=== PATIENT | female | born 1980 | race Caucasian/White ===

== ENCOUNTER → 2022-03-17 | Outpatient (CLI) | payer OTHER, SELFPAY ==
--- NOTE | 2022-03-17 10:29 | BI_ITS ---
MAMMOGRAPHY - BILATERAL SCREENING REASON FOR EXAM: Female, 41 years old. Routine annual screening examination. PERTINENT HISTORY: Prior history of bilateral breast reduction surgery. TECHNIQUE: Digital bilateral breast deni (3D mammographic acquisition) in the CC and MLO projections. 2-D mediolateral oblique (MLO) and craniocaudad (CC) views of both breasts were obtained. CAD: Full Field Digital Mammography with Computer Added Detection was performed. COMPARISON: None. Baseline examination. FINDINGS: Breast Composition: There are scattered areas of fibroglandular density. There are grouped rounded calcifications in the left upper outer breast, anterior depth approximately 2.5 cm posterior to the nipple. Further evaluation with magnification views is recommended. There is a focal asymmetry in the right lower inner breast, posterior depth, approximately 7.5 cm posterior to nipple. In addition, there is also a focal asymmetry in the right lower inner breast, middle depth, approximately 5 cm posterior to the nipple. Further evaluation with spot compression views and ultrasound is recommended. No other significant abnormalities are identified. BI/SCRN MAMM (CAD)W/DENI BILAT IMPRESSION: Further imaging evaluation recommended, as described above. (E) ASSESSMENT CATEGORY: BIRADS Category 0: Incomplete. Need additional imaging evaluation. A letter regarding these results will be sent to the patient by the facility within 30 days. Approximately 10% of breast cancers are not detected by mammography. A normal mammogram should not delay biopsy of a clinically suspicious abnormality. [id number] Electronically Signed: Jurgen Galvin, at 8:16 EDT ,
== END | disposition home or self-care (01) ==
LOC: OPBI 10:27
PROVIDERS: PCP Nurse Practitioner Primary Care; Referring Provider Student in an Organized Health Care Education/Training Program; Visit Provider Student in an Organized Health Care Education/Training Program
DX: Z12.31 Encounter for screening mammogram for malignant neoplasm of breast (principal)
CPT/HCPCS: 77063; 77067

== ENCOUNTER → 2022-03-23 | Outpatient (CLI) | payer OTHER, SELFPAY ==
--- NOTE | 2022-03-23 08:54 | BI_ITS ---
MAMMOGRAPHY - BILATERAL DIAGNOSTIC REASON FOR EXAM: Female, 41 years old. Abnormal screening mammogram. PERTINENT HISTORY: Prior bilateral breast reduction surgery. TECHNIQUE: Compression spot views of both breasts were obtained. CAD: Full Field Digital Mammography with Computer Added Detection was performed. COMPARISON: Comparison is made with prior study dated 03/17/2022. FINDINGS: Breast Composition: There are scattered areas of fibroglandular density. Stable persistent nodular density in the inferior slightly medial aspect of the right breast. Correlation with ultrasound is recommended. No other significant abnormalities are identified. BI/DIAG MAMM W/CAD, BILAT IMPRESSION: Stable persistent nodular density in the inferior slightly medial aspect of the right breast. Correlation with ultrasound is recommended. ASSESSMENT CATEGORY: BIRADS Category 0: Incomplete. Need additional imaging evaluation. A letter regarding these results will be sent to the patient by the facility within 30 days. Approximately 10% of breast cancers are not detected by mammography. A normal mammogram should not delay biopsy of a clinically suspicious abnormality. Electronically Signed: Vitor Fan MD at 9:44 EDT ,
--- NOTE | 2022-03-23 09:26 | US_ITS ---
STUDY: ULTRASOUND BREAST - RIGHT REASON FOR EXAM: Female, 41 years old. Abnormal screening mammogram. TECHNIQUE: Axial and longitudinal images of the RIGHT breast were performed with a high resolution ultrasound transducer. # OF IMAGES: 45 COMPARISON: Comparison is made with prior mammogram done earlier in the day as well as prior mammogram dated 03/17/2022. FINDINGS: RIGHT Breast: At the 3 o''clock position of the breast in the retroareolar region, there are 2 adjacent cysts. The larger cyst measures 5 mm x 5 mm x 5 mm. US/Breast Limited Unilateral IMPRESSION: There are 2 subcentimeter adjacent cysts in the retroareolar region of the right breast. ASSESSMENT CATEGORY: BIRADS Category 2: Benign. A letter regarding these results will be sent to the patient by the facility within 30 days. Electronically Signed: Vitor Fan MD at 10:32 EDT ,
== END | disposition home or self-care (01) ==
LOC: OPBI 08:51
PROVIDERS: PCP Nurse Practitioner Primary Care; Visit Provider Student in an Organized Health Care Education/Training Program
DX: R92.1 Mammographic calcification found on diagnostic imaging of breast (principal); R92.8 Other abnormal and inconclusive findings on diagnostic imaging of breast
CPT/HCPCS: 76642; 77066

== ENCOUNTER → 2023-04-23 | Outpatient (CLI) | payer OTHER, SELFPAY ==
--- NOTE | 2023-04-23 12:30 | BI_ITS ---
MAMMOGRAPHY - BILATERAL SCREENING 3-D TOMOSYNTHESIS REASON FOR EXAM: Female, 42 years old. Routine screening PERTINENT HISTORY: No significant family history. Previous reduction surgery TECHNIQUE: 2-D mammograms and 3-D Tomosynthesis of the breast (s) were performed. CAD was performed. COMPARISON: 03/17/2022 FINDINGS: The breast composition is almost entirely fat. Scattered benign punctate calcifications are seen. No dense spiculated masses or suspicious microcalcifications are identified. No architectural distortion is identified. There is no skin thickening or retraction. Stable architectural distortion from previous reduction surgery. There has been no significant change since the prior study. BI/SCRN MAMM (CAD)W/DENI BILAT IMPRESSION: No mammographic signs of malignancy. Routine yearly mammograms recommended. ASSESSMENT CATEGORY: BIRADS Category 1: Negative. A letter regarding these results will be sent to the patient by the facility within 30 days. FOLLOW UP RECOMMENDATION: Yearly follow up mammogram recommended. (A) Approximately 10% of breast cancers are not detected by mammography. A normal mammogram should not delay biopsy of a clinically suspicious abnormality. Electronically Signed: Grupo Mayer MD at 13:33 EDT ,
== END | disposition home or self-care (01) ==
PROVIDERS: PCP Nurse Practitioner Primary Care; Referring Provider Student in an Organized Health Care Education/Training Program; Visit Provider Student in an Organized Health Care Education/Training Program
DX: Z12.31 Encounter for screening mammogram for malignant neoplasm of breast (principal)
CPT/HCPCS: 77063; 77067

== ENCOUNTER → 2024-04-24 | Outpatient (CLI) | payer OTHER, SELFPAY ==
--- NOTE | 2024-04-24 13:39 | BI_ITS ---
MAMMOGRAPHY - BILATERAL SCREENING REASON FOR EXAM: Female, 43 years old. Routine annual screening examination. PERTINENT HISTORY: Non-contributory. History of prior bilateral breast reduction surgery. TECHNIQUE: Digital bilateral breast deni (3D mammographic acquisition) in the CC and MLO projections. 2-D mediolateral oblique (MLO) and craniocaudad (CC) views of both breasts were obtained. CAD: Full Field Digital Mammography with Computer Added Detection was performed. COMPARISON: Comparison is made with prior study dated April 23, 2023 and March 23, 2022. FINDINGS: Breast Composition: There are scattered areas of fibroglandular density. There are no dominant masses or suspicious calcifications. No other significant abnormalities are identified. There has been no significant change since the prior study. BI/SCRN MAMM (CAD)W/DENI BILAT IMPRESSION: Stable bilateral screening mammogram. Yearly follow-up mammogram recommended. (A) ASSESSMENT CATEGORY: BIRADS Category 1: Negative. A letter regarding these results will be sent to the patient by the facility within 30 days. Approximately 10% of breast cancers are not detected by mammography. A normal mammogram should not delay biopsy of a clinically suspicious abnormality. [id number] Electronically Signed: Vitor Fan MD at 14:56 EDT ,
== END | disposition home or self-care (01) ==
LOC: OPBI 13:37
PROVIDERS: PCP Nurse Practitioner Primary Care
DX: Z12.31 Encounter for screening mammogram for malignant neoplasm of breast (principal)
CPT/HCPCS: 77063; 77067

== ENCOUNTER → 2025-02-06 | Outpatient (CLI) | payer OTHER, SELFPAY ==
--- NOTE | 2025-02-06 13:53 | BI_ITS ---
EXAM: DIAG MAMM W/CAD, BILAT; BREAST LIMITED UNILATERAL; BILAT BRST DENI STAND ALONE 02/06/2025 CLINICAL HISTORY: 44-year-old female presents with palpable concern in the right breast. Personal history of bilateral breast reduction. TECHNIQUE: Bilateral Diagnostic digital breast tomosynthesis with 2D and 3D images. Computer aided detection. Also, targeted right breast ultrasound was performed. COMPARISON: Prior exam(s) dated 04/24/2024, 04/23/2023, 03/23/2022, 03/17/2022. FINDINGS: MAMMOGRAM: TISSUE DENSITY: The breast tissue is composed of scattered area of fibroglandular density. Right breast: There is a triangle skin marker indicating an area of palpable concern in the central inner right breast. Underlying the skin marker is fat necrosis/trauma, including oil cysts and dystrophic calcifications. Otherwise, there are no suspicious findings in the right breast. Left breast: There are no suspicious masses, grouped calcifications or architectural distortions in the left breast. ULTRASOUND: Targeted right breast ultrasound performed of the area of palpable concern demonstrates a circumscribed hypoechoic mass with no internal vascular flow at 2 o'clock 2 cm from the nipple measuring 0.6 x 0.6 x 0.4 cm. This mass is consistent with an oil cyst and correlates to the mammographic finding. Otherwise, there are no suspicious sonographic findings. BI/DIAG MAMM W/CAD, BILAT IMPRESSION: 1. The patient's area of palpable concern in the right breast correlates to be nign fat necrosis/trauma. 2. There is no evidence of malignancy in either breast. OVERALL FINAL ASSESSMENT: BIRADS 2 BENIGN FINDING. RECOMMENDATION: Routine annual follow-up in 1 Year A letter with findings and recommendations will be mailed to the patient. Reading Location: [id number]
--- NOTE | 2025-02-06 13:53 | BI_ITS ---
EXAM: DIAG MAMM W/CAD, BILAT; BREAST LIMITED UNILATERAL; BILAT BRST DENI STAND ALONE 02/06/2025 CLINICAL HISTORY: 44-year-old female presents with palpable concern in the right breast. Personal history of bilateral breast reduction. TECHNIQUE: Bilateral Diagnostic digital breast tomosynthesis with 2D and 3D images. Computer aided detection. Also, targeted right breast ultrasound was performed. COMPARISON: Prior exam(s) dated 04/24/2024, 04/23/2023, 03/23/2022, 03/17/2022. FINDINGS: MAMMOGRAM: TISSUE DENSITY: The breast tissue is composed of scattered area of fibroglandular density. Right breast: There is a triangle skin marker indicating an area of palpable concern in the central inner right breast. Underlying the skin marker is fat necrosis/trauma, including oil cysts and dystrophic calcifications. Otherwise, there are no suspicious findings in the right breast. Left breast: There are no suspicious masses, grouped calcifications or architectural distortions in the left breast. ULTRASOUND: Targeted right breast ultrasound performed of the area of palpable concern demonstrates a circumscribed hypoechoic mass with no internal vascular flow at 2 o'clock 2 cm from the nipple measuring 0.6 x 0.6 x 0.4 cm. This mass is consistent with an oil cyst and correlates to the mammographic finding. Otherwise, there are no suspicious sonographic findings. BI/Bilat Brst Deni Stand Alone IMPRESSION: 1. The patient's area of palpable concern in the right breast correlates to be nign fat necrosis/trauma. 2. There is no evidence of malignancy in either breast. OVERALL FINAL ASSESSMENT: BIRADS 2 BENIGN FINDING. RECOMMENDATION: Routine annual follow-up in 1 Year A letter with findings and recommendations will be mailed to the patient. Reading Location: [id number]
== END | disposition home or self-care (01) ==
PROVIDERS: PCP Nurse Practitioner Primary Care; Referring Provider Nurse Practitioner Primary Care; Visit Provider Nurse Practitioner Primary Care
DX: N63.12 Unspecified lump in the right breast, upper inner quadrant (principal)
CPT/HCPCS: 76642; 77062; 77066; G0279